=== PATIENT | male | born 2000 | race Two or more races ===

== ENCOUNTER 2024-05-11 21:33 | Emergency (ER) | payer OTHER ==
[~2024-05-11] VITALS: Ht 170.2 cm; Wt 84.8 kg
[2024-05-11] MEDS ORDERED: ACETAMINOPHEN ES 500 MG TABLET ONE (23:38)
[2024-05-11] MEDS: ACETAMINOPHEN ES 500 MG TABLET PO ONE (23:54)
[2024-05-12 03:13] VITALS: BP 120/81; TEMP 98; O2SAT 99
== END 2024-05-12 03:13 | disposition home or self-care (01) ==
LOC: ER 21:46
DX: S09.90XA Unspecified injury of head, initial encounter (principal); M25.512 Pain in left shoulder; V43.52XA Car driver injured in collision with other type car in traffic accident, initial encounter; Y93.89 Activity, other specified; Y92.89 Other specified places as the place of occurrence of the external cause; Y99.8 Other external cause status
CPT/HCPCS: 70450-TC; 73030-TC